=== PATIENT | female | born 2005 | race African-American/Black ===

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

== ENCOUNTER 2024-07-31 11:24 | Emergency (ER) | payer MEDICAID, OTHER ==
[~2024-07-31] VITALS: Ht 172.7 cm; Wt 49.0 kg
[~2024-07-31 11:24] MED LIST: CLIN-194 MT; IBUP-2029 MT
[2024-07-31 11:28] VITALS: O2SAT 100
[2024-07-31 11:36] VITALS: BP 112/66; PULSE 81; RESP 16; TEMP 98.3; O2SAT 100
[2024-07-31] MEDS ORDERED: IBUP-2029 MT (13:01)
[2024-07-31] MEDS: IBUPROFEN 600MG TABLET PO ONE (13:30)
== END 2024-07-31 13:35 | disposition home or self-care (01) ==
LOC: ER 11:24
DX: S62.314A Displaced fracture of base of fourth metacarpal bone, right hand, initial encounter for closed fracture (principal); X58.XXXA Exposure to other specified factors, initial encounter; Y93.89 Activity, other specified; Y92.89 Other specified places as the place of occurrence of the external cause; Y99.8 Other external cause status
CPT/HCPCS: 29125; 73130; 81025; 99283

== ENCOUNTER 2025-04-10 21:55 | Emergency (ER) | payer OTHER ==
[~2025-04-10] VITALS: Ht 175.3 cm; Wt 49.0 kg
[2025-04-10 22:07] VITALS: O2SAT 100
[2025-04-10 22:17] VITALS: BP 128/78; PULSE 92; RESP 18; TEMP 36.7; O2SAT 100
== END 2025-04-11 02:05 | disposition left against medical advice (07) ==
LOC: ER 21:55
DX: H92.03 Otalgia, bilateral (principal); Z53.21 Procedure and treatment not carried out due to patient leaving prior to being seen by health care provider